=== PATIENT | female | born 1955 | race Caucasian/White ===

== ENCOUNTER 2024-07-14 09:49 | Inpatient (IN) | payer SELFPAY ==
[2024-07-14 10:01] VITALS: BMI 24.7
[2024-07-14] MEDS ORDERED: METOPROLOL TARTRATE 5 MG/5 ML VIAL ONE (10:04)
[2024-07-14] MEDS ORDERED: MAGNESIUM SULFATE IN WATER 2 GM/50 ML IVPB IVPB ONE (10:05)
[2024-07-14] MEDS: METOPROLOL TARTRATE 5 MG/5 ML VIAL IVPUSH ONE ×2 (10:34→10:36)
[2024-07-14 10:35] LABS: ABSOLUTE IMMATURE GRANULOCYTES 0.01 x10^3/uL (0.0-0.031); BASOPHILS # 0.04 x10^3/uL (0.01-0.08); EOSINOPHIL % 3.4 % (0.7-5.8); EOSINOPHILS # 0.19 x10^3/uL (0.04-0.36); HEMATOCRIT 43.7 % (34.1-44.9); HEMOGLOBIN 14.3 g/dL (11.2-15.7); MCHC 32.7 g/dl (32.2-35.5); MEAN CELL VOLUME 89.9 fl (79.4-94.8); MEAN PLT VOLUME 9.2 fl (9.4-12.3); MONOCYTE # 0.51 x10^3/uL (0.24-0.86); MONOCYTE % 9.2 % (4.7-12.5); PLATELET COUNT 284 x10^3/uL (182-369); RDW 12.3 % (12.4-16.4)
[2024-07-14] MEDS: MAGNESIUM SULFATE IN WATER 2 GM/50 ML IVPB IVPB ONE (10:36)
[2024-07-14] MEDS: SODIUM CHLORIDE 500 ML IV STA (10:36)
[2024-07-14] MEDS ORDERED: ACETAMINOPHEN INJECTION 100 ML ONE (10:57)
[2024-07-14] MEDS: ACETAMINOPHEN 1000 MG/100 ML BAG IVPB ONE (11:03)
[2024-07-14 11:05] LABS: POTASSIUM 3.5 mmol/L (3.5-5.1)
[2024-07-14 11:07] LABS: ALBUMIN 3.7 g/dl (3.4-5.0); CALCIUM 9.6 mg/dL (8.5-10.1); MAGNESIUM 2.4 mg/dL (1.8-2.4)
[2024-07-14 11:10] LABS: CREATININE 0.9 mg/dL (0.55-1.3)
[2024-07-14 11:12] LABS: BILIRUBIN,TOTAL 0.6 mg/dL (0.2-1); TOT PROT 7.6 g/dl (6.4-8.2)
[2024-07-14] MEDS: POTASSIUM CHLORIDE TABS 20 MEQ TABLET.ER (FP) PO ONE (17:48)
[2024-07-14] MEDS: ACETAMINOPHEN 325 MG TABLET (FP) PO PRN (17:59)
[2024-07-14 18:10] VITALS: RESP 18
[2024-07-14 18:26] LABS: N-TERMINAL BNP 184.3 pg/ml (5-125)
[2024-07-14] MEDS: APIXABAN 2.5 MG TABLET PO SCH (21:46)
[2024-07-15 05:25] VITALS: TEMP 98.2
[2024-07-15 07:03] LABS: HEMATOCRIT 37.3 % (34.1-44.9); HEMOGLOBIN 12.5 g/dL (11.2-15.7); MCHC 33.5 g/dl (32.2-35.5); MEAN CELL VOLUME 90.3 fl (79.4-94.8); MEAN PLT VOLUME 9.4 fl (9.4-12.3); PLATELET COUNT 263 x10^3/uL (182-369); RDW 12.5 % (12.4-16.4)
[2024-07-15 07:22] LABS: POTASSIUM 3.7 mmol/L (3.5-5.1)
[2024-07-15 07:27] LABS: ALBUMIN 3.1 g/dl (3.4-5.0)
[2024-07-15 07:28] LABS: CALCIUM 9.1 mg/dL (8.5-10.1); MAGNESIUM 2.3 mg/dL (1.8-2.4)
[2024-07-15 07:29] LABS: BLOOD UREA NITROGEN 23.1 mg/dL (7-18)
[2024-07-15 07:30] LABS: CREATININE 0.8 mg/dL (0.55-1.3)
[2024-07-15 07:31] LABS: TOT PROT 6.5 g/dl (6.4-8.2)
[2024-07-15 07:32] LABS: PHOSPHOROUS 3.9 mg/dL (2.5-4.9)
[2024-07-15 07:34] LABS: BILIRUBIN,TOTAL 0.5 mg/dL (0.2-1)
[2024-07-15] MEDS: POTASSIUM CHLORIDE TABS 20 MEQ TABLET.ER (FP) PO ONE (10:05)
[2024-07-15 15:01] VITALS: BP 115/72; PULSE 58
== END 2024-07-15 16:45 | disposition short-term general hospital (02) | DRG 201 ==
LOC: JER 09:49 → JERBED 13:40 → J4W 14:24 → OBSVTOIN 15:26
PROVIDERS: ADMIT Student in an Organized Health Care Education/Training Program; ATTEND Student in an Organized Health Care Education/Training Program
DX: I48.91 Unspecified atrial fibrillation (principal); F03.90 Unspecified dementia, unspecified severity, without behavioral disturbance, psychotic disturbance, mood disturbance, and anxiety; E78.5 Hyperlipidemia, unspecified; H53.8 Other visual disturbances; I10 Essential (primary) hypertension; I34.0 Nonrheumatic mitral (valve) insufficiency; I51.7 Cardiomegaly; R07.81 Pleurodynia; T50.905A Adverse effect of unspecified drugs, medicaments and biological substances, initial encounter; R00.1 Bradycardia, unspecified; Y92.89 Other specified places as the place of occurrence of the external cause
CPT/HCPCS: 0241U-QW; 36415; 71045-TC-FY; 71250-TC; 80053; 80061; 83735; 83880; 84100; 84443; 84484; 85025; 85027; 93005; 93010; 99285-25; G0378; J0131